=== PATIENT | female | born 1960 | race Caucasian/White ===

== ENCOUNTER 2017-10-30 04:42 | Outpatient (CLI) | payer MEDICARE | END 2017-10-30 23:59 | disposition home or self-care (01) | LOC: DIABETIC 04:42 | PROVIDERS: ATTEND Specialist | DX: E11.65 Type 2 diabetes mellitus with hyperglycemia (principal) | CPT/HCPCS: G0108 ==

== ENCOUNTER 2017-12-11 05:04 | Outpatient (CLI) | payer MEDICARE | END 2017-12-11 23:59 | disposition home or self-care (01) | LOC: DIABETIC 05:04 | PROVIDERS: ATTEND Specialist | DX: E11.65 Type 2 diabetes mellitus with hyperglycemia (principal) | CPT/HCPCS: G0108 ==